=== PATIENT | male | born 1985 | race Caucasian/White ===

== ENCOUNTER → 2020-06-11 07:35 | Outpatient (BNVA) | payer SELFPAY | PROVIDERS: Visit Provider Internal Medicine | DX: Z02.79 Encounter for issue of other medical certificate (principal) ==

== ENCOUNTER 2021-07-15 00:15 | Emergency (ER) | payer OTHER, MEDICAID, SELFPAY ==
[2021-07-15 00:20] VITALS: BP 156/106; PULSE 100; RESP 20; TEMP 37.2; O2SAT 96; BMI 40.6
--- NOTE | 2021-07-15 02:14 | ED.GENADULT ---
HPI - General Adult General Chief complaint: General Medical Stated complaint: R jaw pain, hard to swallow; chest pain after meds Time Seen by Provider: 07/15/21 02:14 History of Present Illness HPI narrative: Patient is a 35-year-old male presents today with having right-sided jaw pain. The pain is constant. Patient has been having it for about 4 days. Have some sore throat associated with it. Was given a Z-Darren by his primary physician given some nabutone. No fever no chills. No difficulty swallowing. Positive pain on swallowing. No history of recent dental work. No shortness of breath. No diaphoresis. Patient just started the antibiotic today. Related Data Allergies Allergy/AdvReac Type Severity Reaction Status Date / Time amoxicillin AdvReac Vomiting Verified 07/15/21 00:28 Penicillins AdvReac Vomiting Verified 07/15/21 00:28 Review of Systems Review of Systems: No fever no chills No cough no congestion or upper respiratory symptoms Positive pain to the right jaw. Positive pain on swallowing Yes all other systems are reviewed and are negative REPLACED BY [facility] Past Medical History Attestation statement: The following information was validated with the patient. Social History Social History Advance Directives: No Physical Exam ED Vital Signs: Vital Signs - 24 hr 07/15/21 00:20 Temperature 99 F Pulse Rate 100 Respiratory Rate 20 Blood Pressure 156/106 H Pulse Oximetry 96 BMI result Body Mass Index 40.6 Appearance: Alert. Oriented X3. No acute distress. Eyes: Pupils equal, round and reactive to light. ENT: Pharynx normal. There is no erythema noted. The floor of the mouth for soft. There is no dental cavities noted. There is no malocclusion noted. TMs were intact bilaterally there is no erythema noted. Neck: Normal inspection. Neck supple. No lymph nodes noted. No crepitus CVS: Normal heart rate and rhythm. Pulses normal. Normal S1 and S2 Respiratory: No respiratory distress. Breath sounds normal. No Wheezing. No rales Abdomen: Soft and nontender. No rigidity. No distention. good BS x4 Skin: Skin warm and dry. Normal skin color. Normal skin turgor. Extremities: No lower extremity edema. Neurovascular intact to all extremities. No Lacerations. No Rash Neuro: Oriented X 3. No motor deficit. No sensory deficit. Moving all extermities. No slurred speech Medical Decision Making MDM Narrative Medical decision making narrative: Patient's exam was benign. Question viral syndrome. Already had COVID test done on an outpatient basis they were negative. Patient well-appearing. Will have patient continue NSAIDs. Continue current CPAP. Follow-up with primary physician. There is no gross change in voice there is no gross difficulty in swallowing. Only some pain on swallowing. Patient is already on NSAIDs. [place] at this time narcotics would be too strong. Will have patient follow-up on an outpatient basis Discharge Plan Discharge Clinical Impression: Jaw pain Patient Disposition: Home, Self-Care Instructions: Atypical Facial Pain (ED) Referrals: Eduardo Villafana MD [Primary Care Provider] - 2 days
--- NOTE | 2021-07-15 02:29 | PC.NURSE ---
PT AWAKE, ALERT AND ORIENTED X 3. SKIN WARM AND DRY. RESP UNLABORED. AIRWAY PATENT, SPEAKING IN FULL CLEAR SENTENCES. NO ACUTE DISTRESS. MANAGING SECRETIONS. EVALUATED BY DR CHAPA. UPDATED ON PLAN OF CARE. PT AGREEABLE TO PLAN.
== END 2021-07-15 02:31 | disposition home or self-care (01) ==
PROVIDERS: Emergency Provider Emergency Medicine Emergency Medical Services; PCP Internal Medicine
DX: R68.84 Jaw pain (principal); R07.89 Other chest pain; Z79.899 Other long term (current) drug therapy
CPT/HCPCS: 99282

== ENCOUNTER → 2023-05-18 14:04 | Outpatient (BNVA) | payer SELFPAY | PROVIDERS: PCP Internal Medicine; Visit Provider Physician Assistant | DX: Z02.79 Encounter for issue of other medical certificate (principal) ==

== ENCOUNTER → 2024-05-09 09:28 | Outpatient (BNVA) | payer SELFPAY | PROVIDERS: PCP Internal Medicine; Visit Provider Physician Assistant | DX: Z02.79 Encounter for issue of other medical certificate (principal) ==

== ENCOUNTER → 2025-05-04 07:31 | Outpatient (BNVA) | payer SELFPAY | PROVIDERS: PCP Internal Medicine; Visit Provider Physician Assistant Medical | DX: Z02.79 Encounter for issue of other medical certificate (principal) ==